=== PATIENT | female | born 1990 | race Caucasian/White ===

== ENCOUNTER 2024-01-21 20:54 | Emergency (ER) | payer OTHER, SELFPAY ==
[2024-01-21 20:57] VITALS: BP 109/75; PULSE 118; PULSE 120; RESP 16; TEMP 36.5; O2SAT 100; BMI 25.8
[2024-01-21 21:00] VITALS: BP 113/72; PULSE 115; RESP 16; O2SAT 100
--- NOTE | 2024-01-21 21:05 | EKG_ITS ---
[address] [address] Test Date: 2024-01-21 Pat Name: Sarah Crooks Department: [facility] Room: Gender: Female [employer] Hel[employer]: POLO : 1990 Requested By: Order Number: [id number] Reading MD: Keo Tucker MD Measurements Intervals [place] Rate: 111 P: 53 [place]: 150 QRS: 71 QRSD: 82 T: 30 QT: 332 QTc: 451 Interpretive Statements Sinus tachycardia Electronically Signed On 01-22-2024 7:30:14 PDT by Keo Tucker MD
[2024-01-21 21:14] LABS: Add Manual Diff / Slide Review NO; Basophils Absolute Auto 0 /uL (0-100); Basophils Percent Auto 0.7 % (0-2); Eosinophils Absolute Auto 100 /uL (0-450); Eosinophils Percent Auto 1.1 % (2-4); Hematocrit 37.8 % (36-46); Lymphocytes Absolute Auto 1900 /uL (1100-4500); Lymphocytes Percent Auto 28.4 % (25-40); Mean Corpuscular HGB Conc 34.5 % (30-36); Mean Corpuscular Hemoglobin 31.4 PG (26-34); Mean Corpuscular Volume 90.8 fL (80-100); Monocytes Absolute Auto 600 /uL (0-900); Monocytes Percent Auto 8.4 % (3-14); Neutrophils Absolute Auto 4100 /uL (1500-7000); Neutrophils Percent Auto 61.4 % (50-75); Platelet Count 275 X10^3/uL (150-400); Red Blood Cell Count 4.16 X10^6/uL (4.0-5.2); Red Cell Distribution Width 12.3 % (11.6-14.8); White Blood Cell Count 6.7 X10^3/uL (4.5-11.0)
[2024-01-21 21:30] VITALS: BP 114/69; PULSE 99; RESP 21; O2SAT 100
[2024-01-21 21:36] LABS: Pregnancy Test Serum,Qual Negative (Negative)
[2024-01-21 21:37] LABS: Alanine Aminotransferase 32 IU/L (<35); Albumin Globulin Ratio 1.7 (1.0-2.8); Alkaline Phosphatase 49 U/L (38-126); Aspartate Aminotransferase 42 IU/L (14-36); Bilirubin Total 0.6 mg/dL (0.2-1.3); Blood Urea Nitrogen 17 mg/dL (7-17); Calcium 8.9 mg/dL (8.4-10.2); Carbon Dioxide 18 mmol/L (22-32); Chloride 108 mmol/L (98-107); Estimated Glomerular Filt Rate > 60 mL/min (>60); Ethanol (ETOH) < 10 mg/dL; Globulin 2.3 g/dL (1.7-4.1); Glucose 102 mg/dL (70-100); HEMOLYSIS < 15 (0-50); Lipase 75 U/L (23-300); Potassium 3.9 mmol/L (3.4-5.1); Sodium 136 mmol/L (137-145); Total Protein 6.3 g/dL (6.3-8.2)
--- NOTE | 2024-01-21 21:57 | ED.GENADULT ---
HPI - General Adult General Chief complaint: Syncope Stated complaint: Syncope Time Seen by Provider: 01/21/24 20:57 Source: patient and EMS Mode of arrival: EMS History of Present Illness HPI narrative: Patient is a 33-year-old female who is brought in by EMS for evaluation of a potential syncope/seizure episode. Patient was at her normal state of health. She was lying in bed. She took a Zofran for her chronic nausea and also a Xanax. She was unsure as to whether or not she potentially took a medication that was old that was also in her bed stand but she was not sure this. She stated that she leaned over to her in mentioned that she was not feeling very well. Her has been states that she became unconscious. He thought that she was having rhythmic shaking like activity. There was no loss of bowel or bladder. There was no color change. She did not bite her tongue. Symptoms lasted less than a couple minutes. Afterwards patient states that she was confused about the event. She knew that she was in her room. She knew that she was lying next to her . She currently states she was just having some tingling all over. Has never had any symptoms like this in the past. Related Data Home Medications Medication Instructions Recorded Confirmed Zofran ODT 4 mg 01/21/24 Allergies Allergy/AdvReac Type Severity Reaction Status Date / Time No Known Drug Allergies Allergy Verified 01/21/24 21:07 Review of Systems Review of Systems Narrative: See HPI Exam Initial Vital Signs Initial Vital Signs: Vital Signs Temperature 97.7 F 01/21/24 20:57 Pulse Rate 118 H 01/21/24 20:57 Respiratory Rate 16 01/21/24 20:57 Blood Pressure 109/75 01/21/24 20:57 Pulse Oximetry 100 01/21/24 20:57 Oxygen Delivery Method Room Air 01/21/24 20:57 Const General: cooperative, comfortable and No ill appearing HENMT Head: normal to inspection and normocephalic Resp Effort & Inspection: normal respiratory effort Auscultation: clear to auscultation bilaterally Cardio Rate: regular rate Rhythm: regular rhythm GI Inspection: normal to inspection and non-distended Skin General: no rashes or lesions noted Neuro General: patient alert, patient awake, patient oriented x3 and moves all extremities Cognition: normal cognition Speech: speech normal Extrem General: normal to inspection and capillary refill normal Scores GCS [place] coma scale eye opening: Spontaneous [place] coma scale verbal response: Orientated [place] coma scale motor response: Obey commands R[place] coma scale total score: 15 Course Orders Ordered: ED Orders 01/21/24 20:57 EKG-12 Lead Stat 01/21/24 21:02 Complete Blood Count AUTO DIFF Stat Comprehensive Metabolic Panel Stat Ethanol (ETOH) Stat Lipase Stat Test Serum,Qual Stat Vital Signs Vital signs: Vital Signs - 8 hr 01/21/24 20:57 01/21/24 20:57 01/21/24 20:57 Temperature 97.7 F Pulse Rate 118 H 120 H Respiratory Rate 16 Blood Pressure 109/75 109/75 Pulse Oximetry 100 100 Oxygen Delivery Method Room Air 01/21/24 21:00 01/21/24 21:00 01/21/24 21:30 Temperature Pulse Rate 115 H 99 H Respiratory Rate 16 21 Blood Pressure 113/72 Pulse Oximetry 100 100 Oxygen Delivery Method 01/21/24 21:30 01/21/24 22:00 01/21/24 22:00 Temperature Pulse Rate 103 H Respiratory Rate Blood Pressure 114/69 134/79 Pulse Oximetry 98 Oxygen Delivery Method Medical Decision Making Lab Data Lab results reviewed: Yes I reviewed the patient's lab results. 01/21/24 21:02 01/21/24 21:02 Labs: Lab Results 01/21/24 Range/Units 21:02 WBC 6.7 (4.5-11.0) X10^3/uL RBC 4.16 (4.0-5.2) X10^6/uL Hgb 13.0 (12.0-16.0) g/dL Hct 37.8 (36-46) % MCV 90.8 (80-100) fL MCH 31.4 (26-34) PG MCHC 34.5 (30-36) % RDW 12.3 (11.6-14.8) % Plt Count 275 (150-400) X10^3/uL Neut % (Auto) 61.4 (50-75) % Lymph % (Auto) 28.4 (25-40) % [place] % (Auto) 8.4 (3-14) % Eos % (Auto) 1.1 L (2-4) % Baso % (Auto) 0.7 (0-2) % Neut # (Auto) 4100 (6072-0819) /uL Lymph # (Auto) 1900 (0835-7865) /uL [place] # (Auto) 600 (0-900) /uL Eos # (Auto) 100 (0-450) /uL Baso # (Auto) 0 (0-100) /uL Sodium 136 L (137-145) mmol/L Potassium 3.9 (3.4-5.1) mmol/L Chloride 108 H (98-107) mmol/L Carbon Dioxide 18 L (22-32) mmol/L BUN 17 (7-17) mg/dL Creatinine 0.81 (0.52-1.04) mg/dL Estimated GFR > 60 (>60) mL/min BUN/Creatinine Ratio 21.0 (6-22) Glucose 102 H (70-100) mg/dL Calcium 8.9 (8.4-10.2) mg/dL Total Bilirubin 0.6 (0.2-1.3) mg/dL AST 42 H (14-36) IU/L ALT 32 (<35) IU/L Alkaline Phosphatase 49 (38-126) U/L Total Protein 6.3 (6.3-8.2) g/dL Albumin 4.0 (3.5-5.0) g/dL Globulin 2.3 (1.7-4.1) g/dL Albumin/Globulin Ratio 1.7 (1.0-2.8) Lipase 75 (23-300) U/L Serum , Qual Negative (Negative) Ethyl Alcohol < 10 ( - 10) mg/dL ECG Data Attestation: I personally reviewed and interpreted this ECG as follows: Interpretation: Sinus tachycardia Ventricular rate of 111 Normal axis Normal QRS Normal QTC No ST T wave changes MDM Narrative Medical decision making narrative: Patient is alert and oriented x3. Electrolytes are unremarkable. Unsure as to whether or not this was then exactly seizure-like activity or syncopal episode although the patient was lying down at the time. No loss of bowel or bladder. She did not bite her tongue. I had a discussion with her and her regarding her symptoms. We did discuss that this potentially was a seizure. Advised that she can not drive until she was cleared by either her primary doctor or a neurologist. Given that she was now back to baseline no indication for radiologic studies although this may need to happened in the future. Will hold on starting antiseizure medicines. She was given return precautions. She expressed understanding and agreement. Discharge Plan Departure Patient Disposition: Home Clinical Impression: Seizure-like activity Instructions: Seizure Safety Precautions-Adult Activity Restrictions/Additional Instructions: Continue to take all of your medications as directed. I do recommend that you contact your primary care doctor for a follow-up. You are not to drive until you are cleared by either your primary doctor or a neurologist. Return to the emergency department for new symptoms. Prescriptions: No Action Zofran ODT tablet 4 mg Referrals: Shona Carreon MD [Primary Care Provider] - Stand Alone Forms: Patient Portal/API
[2024-01-21 22:00] VITALS: BP 134/79; PULSE 103; O2SAT 98
== END 2024-01-21 22:17 | disposition home or self-care (01) ==
PROVIDERS: Emergency Provider Emergency Medicine; PCP Family Medicine
DX: R56.9 Unspecified convulsions (principal); R00.0 Tachycardia, unspecified
CPT/HCPCS: 80053; 80320; 83690; 84703; 85025; 93005; 93010; 99283; 99284

== ENCOUNTER 2024-08-31 16:27 | Emergency (ER) | payer OTHER, SELFPAY ==
[2024-08-31 16:30] VITALS: BP 128/74; PULSE 87; RESP 14; TEMP 37.2; O2SAT 95; BMI 24.2
--- NOTE | 2024-08-31 16:45 | ED_ITS ---
HPI - Wound/Laceration <Elizabeth Hilliard PA-C - Last Filed: 08/31/24 19:01> General Chief Complaint: Wound/Laceration Stated Complaint: wound RT hand Middle finger Time Seen by Provider: 08/31/24 16:45 Source: patient Mode of arrival: Ambulatory History of Present Illness HPI narrative: Ms. Crooks is a pleasant 33-year-old female with a past medical history of anxiety/depression who presents to the emergency department for a right middle finger laceration that occurred prior to arrival. Patient states she was cleaning out her Fridge, wiping down the back of the Fridge with a sponge when she sliced her middle finger on a sheet of metal in the back of the Fridge. She sustained about a 2 cm linear laceration on the palmar pad of the right middle finger. Bleeding controlled with direct pressure but resumes immediately upon removal of direct pressure. Denies any other injuries, no blood thinner or steroid use. Her Tdap needs to be updated. Related Data Home Medications Medication Instructions Recorded Confirmed Zofran ODT 4 mg 01/21/24 Previous Rx's Medication Instructions Recorded cephalexin 500 mg capsule 500 mg PO TID 5 days #15 caps 08/31/24 Allergies Allergy/AdvReac Type Severity Reaction Status Date / Time No Known Drug Allergies Allergy Verified 08/31/24 16:38 Review of Systems <Elizabeth Hilliard PA-C - Last Filed: 08/31/24 19:01> Review of Systems ROS Unobtainable: All systems reviewed & are unremarkable except as noted in HPI and below Patient History <Elizabeth Hilliard PA-C - Last Filed: 08/31/24 19:01> Social History Smoking Status: Unknown if ever smoked Smoking Status: Unknown if ever smoked Exam <SABI Bhakta Last Filed: 08/31/24 19:01> Narrative Exam Narrative: GENERAL: 33 year old patient appears stated age. Well-developed patient, in no acute distress. HEAD: Atraumatic. Normocephalic. CARDIOVASCULAR: Regular rate RESPIRATORY: ?Nonlabored respirations. ?Speaking in clear, full sentences. EXTREMITIES: 2 cm linear laceration on the right middle finger distal pad, no nail involvement, there is significant bleeding that stopped with direct pressure. Cap refill and sensation intact distal to the wound. After digital block and irrigation performed, revealed that wound is actually a 2 cm deep flap like laceration that does have small vascular bleed easily controlled with direct pressure and suture NEURO: AOx3. ?Clear speech. ?Moves all 4 extremities appropriately. SKIN: Right middle finger laceration described above. Initial Vital Signs Initial Vital Signs: Vital Signs Temperature 98.9 F 08/31/24 16:30 Pulse Rate 87 08/31/24 16:30 Respiratory Rate 14 08/31/24 16:30 Blood Pressure 128/74 08/31/24 16:30 Pulse Oximetry 95 08/31/24 16:30 Oxygen Delivery Method Room Air 08/31/24 16:30 <Daphne Mohamud DO - Last Filed: 09/02/24 15:38> Initial Vital Signs Initial Vital Signs: Vital Signs Temperature 98.9 F 08/31/24 16:30 Pulse Rate 87 08/31/24 16:30 Respiratory Rate 14 08/31/24 16:30 Blood Pressure 128/74 08/31/24 16:30 Pulse Oximetry 95 08/31/24 16:30 Oxygen Delivery Method Room Air 08/31/24 16:30 Procedures <SABI Bhakta Last Filed: 08/31/24 19:01> Laceration Repair Laceration 1: Time of procedure: 17:45 Site: hand (middle finger, distal phalanx pad ) Size (cm): 2 Description: flap Depth: simple, single layer Local Anesthetic: other anesthetic (lido 1% digital block) Amount of anesthesia used (mL): 3 Pre-repair: wound explored and irrigated extensively (Cleansed using Betadine) Skin layer closed with: nylon Skin layer suture size: 5-0 Number of sutures: 7 Technique: simple, interrupted Course <SABI Bhakta Last Filed: 08/31/24 19:01> Orders Ordered: Discontinued Medications Bacitracin (Bacitracin Oint 0.9 Gm Pckt) 1 applic TOP NOW ONE Stop: 08/31/24 18:08 Last Admin: 08/31/24 18:20 Dose: 1 applic Documented By: GENA Cephalexin HCl (Cephalexin 250 Mg Capsule) 500 mg PO NOW ONE Stop: 08/31/24 18:08 Last Admin: 08/31/24 18:20 Dose: 500 mg Documented By: GENA Diphtheria/Tetanus/Acell Pertussis (Tet,Diph,Pertuss(Acell),Vac/Pf 0.5 Ml Syri nge) 0.5 ml IM .ONCE ONE Stop: 08/31/24 16:47 Last Admin: 08/31/24 16:51 Dose: 0.5 ml Documented By: GENA Lidocaine HCl (Lidocaine 1% 20 Ml) 20 ml INJ INTRA-OP ONE Stop: 08/31/24 16:50 Last Admin: 08/31/24 16:51 Dose: 5 ml Documented By: GENA Vital Signs Vital signs: Vital Signs - 8 hr 08/31/24 16:30 Temperature 98.9 F Pulse Rate 87 Respiratory Rate 14 Blood Pressure 128/74 Pulse Oximetry 95 Oxygen Delivery Method Room Air <Daphne Mohamud DO - Last Filed: 09/02/24 15:38> Orders Ordered: Discontinued Medications Bacitracin (Bacitracin Oint 0.9 Gm Pckt) 1 applic TOP NOW ONE Stop: 08/31/24 18:08 Last Admin: 08/31/24 18:20 Dose: 1 applic Documented By: GENA Cephalexin HCl (Cephalexin 250 Mg Capsule) 500 mg PO NOW ONE Stop: 08/31/24 18:08 Last Admin: 08/31/24 18:20 Dose: 500 mg Documented By: GENA Diphtheria/Tetanus/Acell Pertussis (Tet,Diph,Pertuss(Acell),Vac/Pf 0.5 Ml Syringe) 0.5 ml IM .ONCE ONE Stop: 08/31/24 16:47 Last Admin: 08/31/24 16:51 Dose: 0.5 ml Documented By: GENA Lidocaine HCl (Lidocaine 1% 20 Ml) 20 ml INJ INTRA-OP ONE Stop: 08/31/24 16:50 Last Admin: 08/31/24 16:51 Dose: 5 ml Documented By: GENA Vital Signs Vital signs: Vital Signs - 8 hr 08/31/24 16:30 Temperature 98.9 F Pulse Rate 87 Respiratory Rate 14 Blood Pressure 128/74 Pulse Oximetry 95 Oxygen Delivery Method Room Air MDM - Wound/Laceration <Elizabeth Hilliard PA-C - Last Filed: 08/31/24 19:01> Medical Records Attestation: I reviewed the patient's medical records. Imaging Data Right Middle Finger X-Ray: My Impression: On my independent interpretation of right middle finger x-ray, there is no fracture of the distal phalanx Radiologist's Impression: PROCEDURE: XR FINGER RT MIN 2V INDICATIONS: right middle finger distal lac TECHNIQUE: AP hand, 2 views of the 3rd finger(s) acquired. COMPARISON: None. FINDINGS: Bones: No fractures or dislocations. No suspicious bony lesions. Soft tissues: No suspicious soft tissue calcifications. Laceration of the distal 3rd phalanx. IMPRESSION: Laceration of the distal 3rd phalanx, without underlying bony abnormality. Dictated by: Pedro Boggs M.D. on 08/31/2024 at 17:44 Approved by: Pedro Boggs M.D. on 08/31/2024 at 17:44 [facility] Narrative Medical decision making narrative: 33-year-old female with a past medical history of anxiety/depression who presents to the emergency department for a right middle finger laceration that occurred prior to arrival. Differential diagnosis includes but is not limited to laceration, digital artery laceration, phalanx fracture, etc. On exam patient is in no acute distress, nontoxic-appearing, all vital signs within normal limits. She has a deep flap laceration on the distal right middle finger pad, neurovascularly intact however she does have significant amount of bleeding that does stop with direct pressure. We will proceed with x-ray, update Tdap, digital block, wound irrigation and repair. Patient's wound was repaired using 7 simple interrupted sutures, she had full cessation of bleeding. Patient was given 1st dose of Keflex in the ED due to this being a ?dirty? hand wound, bacitracin and nonadherent dressing applied by nursing staff. Discussed proper wound care, signs and symptoms of infection, suture removal in 10-14 days. Patient verbalized understanding of all information is agreeable with the plan. She is stable for discharge home. Discharge Plan Departure Patient Disposition: Home Clinical Impression: Laceration of finger, middle Qualifiers: Encounter type: initial encounter Damage to nail status: without damage Foreign body presence: without foreign body Laterality: right Qualified Code(s): S61.212A - Laceration without foreign body of right middle finger without damage to nail, initial encounter Instructions: DI for Laceration Repair Activity Restrictions/Additional Instructions: Dear Ms. Crooks, Thank you for coming to the emergency department. Today you had a laceration to your right middle finger. We have placed 7 sutures. They need to be removed in 10-14 days. You may do this in your doctor's office, the [id number], or here if necessary. Please keep the dressing on your wound clean, dry, and intact for the next 24 hours. After this time, you may remove the dressing and gently clean the wound with soap and water, then pat dry. Keep the wound clean and covered. Avoid soaking the wound in any water such as a bath, pool, or the ocean. If you develop any signs of wound infection such as increased redness, pus drainage, streaking redness, or fevers, please return to the ER immediately for evaluation. Once sutures are removed and the wound has healed, apply sunscreen daily to reduce the appearance of scars. We updated your tetanus shot today. You have been prescribed a short supply of oral antibiotics. These are to help prevent wound infection, but if your wound shows signs of infection you still need to be evaluated in case you need additional or prolonged antibiotics. Please follow up with your primary care doctor within the next 2-3 days for ER follow-up. (If you do not have a PCP you can call [phone]. ?to schedule an appointment with an [facility] Primary Care Provider) IF YOU DEVELOP ANY NEW OR WORSENING SYMPTOMS, RETURN TO THE ER! Please read the attached instructions, they highlight more specific treatments and interventions for you at home. Thank you for letting me participate in your care, Elizabeth Hilliard PA-C Prescriptions: New cephalexin 500 mg capsule 500 mg PO TID 5 Days Qty: 15 0RF No Action Zofran ODT tablet 4 mg Referrals: Shona Carreon MD [Primary Care Provider] - Stand Alone Forms: Patient Portal/API/Survey ED Sign-out <Daphne Mohamud DO - Last Filed: 09/02/24 15:38> Cosign ED Attending Izzyature Attestation: I was immediately available in the department for consultation.
[2024-08-31] MEDS: LIDOCAINE 1% 20 ML INJ (16:51)
[2024-08-31] MEDS: TET,DIPH,PERTUSS(ACELL),VAC/PF 0.5 ML SYRINGE IM (16:51)
--- NOTE | 2024-08-31 17:00 | DI.RAD.S_ITS ---
PROCEDURE: XR FINGER RT MIN 2V INDICATIONS: right middle finger distal lac TECHNIQUE: AP hand, 2 views of the 3rd finger(s) acquired. COMPARISON: None. FINDINGS: Bones: No fractures or dislocations. No suspicious bony lesions. Soft tissues: No suspicious soft tissue calcifications. Laceration of the distal 3rd phalanx. IMPRESSION: Laceration of the distal 3rd phalanx, without underlying bony abnormality. Dictated by: Pedro Boggs M.D. on 08/31/2024 at 17:44 Approved by: Pedro Boggs M.D. on 08/31/2024 at 17:44
[2024-08-31] MEDS: BACITRACIN OINT 0.9 GM PCKT 1 APPLIC TOP (18:20)
[2024-08-31] MEDS: cephALEXin 250 MG CAPSULE 500 MG PO (18:20)
--- NOTE | 2024-08-31 18:44 | PC.NURSE ---
extra dsg supplies and wound care education given to patient and significant other. both verbalized understanding.
== END 2024-08-31 18:30 | disposition home or self-care (01) ==
PROVIDERS: Emergency Provider Physician Assistant; PCP Family Medicine
DX: S61.212A Laceration without foreign body of right middle finger without damage to nail, initial encounter (principal); W26.8XXA Contact with other sharp object(s), not elsewhere classified, initial encounter; Z23 Encounter for immunization
CPT/HCPCS: 12001; 73140; 90471; 99283; 99284; 90715